=== PATIENT | female | born 1960 | race Caucasian/White ===

== ENCOUNTER 2019-10-25 15:03 | Emergency (ER) | payer MEDICARE, MEDICAID, SELFPAY ==
[2019-10-25 16:12] VITALS: BP 122/74; PULSE 71; RESP 20; TEMP 36.4; O2SAT 95; BMI 23.6
--- NOTE | 2019-10-25 16:32 | W.ED.FALL ---
HPI - Fall General: Chief Complaint: Fall Stated Complaint: Fall-thoracic pain Time Seen by Provider: 10/25/19 16:32 PFSH ED PFSH: Statuses (acute, chronic, etc) shown below reflect problem list status as previously entered and may not be historically accurate Social History Smoking and tobacco status: current every day smoker Course Vital Signs: Vital signs: Vital Signs Temperature 97.6 F 10/25/19 16:12 Pulse Rate 71 10/25/19 16:12 Respiratory Rate 20 H 10/25/19 16:12 Blood Pressure 122/74 10/25/19 16:12 Pulse Oximetry 95 10/25/19 16:12 Discharge Plan Discharge Prescriptions: No Action trazodone 100 mg tablet 300 mg PO .QHS Qty: 90 RF: 4 Coding Level of Care Code ED Family Literacy Coordinator for Isaac Villegas
[2019-10-25 16:39] VITALS: BP 105/62; PULSE 75; RESP 16; TEMP 36.4; O2SAT 95
--- NOTE | 2019-10-25 17:12 | XR_ITS ---
WS: [id number] Chest with left rib detail, 10/25/2019 Clinical Data: injury Comparison: Portable chest, 04/19/2019. Findings: The lungs show no nodules, masses, or effusions. The heart is normal. No pneumonia or pneumothorax is seen. The ribs are intact. No rib fractures seen. No subcutaneous emphysema is present. XR/XR ribs LT mn 3V w CXR1V [id number] Impression: Negative chest with left rib detail.
--- NOTE | 2019-10-25 17:13 | W.ED.FALL ---
HPI - Fall General: Chief Complaint: Fall Stated Complaint: Fall-thoracic pain Time Seen by Provider: 10/25/19 16:32 Source: patient Mode of arrival: ambulatory Limitations: no limitations History of Present Illness: HPI Narrative: Patient reports tripping and falling hitting her left anterior chest wall against a bedpost 5 days ago. Patient reports persistent pain to the anterior left chest wall. Patient reports increased pain with deep breaths. Patient appears well. Patient appears in moderate pain. MD complaint: fall Review of Systems General: Reports: 10 or more systems reviewed and unremarkable except in HPI and below Musc: Reports: other (left chest wall pain) PFS ED PFSH: Statuses (acute, chronic, etc) shown below reflect problem list status as previously entered and may not be historically accurate Social History Smoking and tobacco status: current every day smoker Physical Exam Const: COMMON NORMALS: no apparent distress and oriented x3 GENERAL APPEARANCE: cooperative HENMT: COMMON NORMALS: normocephalic, external ears normal, EAC's normal, TM's normal bilaterally and external nose normal HEAD & SCALP: normal to inspection and normocephalic FACE & SINUS: normal facial exam NOSE: external nose normal GENERAL EAR: hearing not grossly impaired EXTERNAL EAR: Yes external ears normal EXTERNAL AUDITORY CANAL: EAC's normal TYMPANIC MEMBRANE: TM's normal bilaterally MOUTH: oral and palatal mucosa normal THROAT: posterior oropharynx normal Eye: COMMON NORMALS: PERRL and EOMs intact bilaterally PUPIL: Yes PERRL Neck/C-Spine: COMMON NORMALS: full ROM and no lymphadenopathy Lymph: LYMPHATIC: no lymphedema noted Chest: CHEST: Yes symmetrical chest wall rise and Yes tenderness (anterior upper left chest wall) Resp: COMMON NORMALS: normal respiratory effort and clear to auscultation bilaterally AUSCULTATION: clear to auscultation bilaterally Cardio: COMMON NORMALS: regular rate and regular rhythm RATE: regular rate RHYTHM: regular rhythm GI: COMMON NORMALS: normal to inspection, nondistended, normoactive bowel sounds and non-tender : COMMON NORMALS: Yes no CVA tenderness BLADDER/KIDNEY EXAM: Yes no CVA tenderness Back/Pelvis: COMMON NORMALS: no CVA tenderness and thoracic and lumbar spine normal to inspection Extremity: COMMON NORMALS: normal to inspection GENERAL: No edema Neuro: COMMON NORMALS: oriented x3, moves all extremities and no focal motor deficits Psych: COMMON NORMALS: mental status grossly normal and cooperative Skin: COMMON NORMALS: no rashes or lesions noted GENERAL SKIN EXAM: no rashes or lesions noted Course Vital Signs: Vital signs: Vital Signs Temperature 97.5 F L 10/25/19 16:39 Pulse Rate 75 10/25/19 16:39 Respiratory Rate 16 10/25/19 16:39 Blood Pressure 105/62 10/25/19 16:39 Pulse Oximetry 95 10/25/19 16:39 MDM - Fall MDM Narrative: Medical decision making narrative: Patient comes in today with left anterior rib discomfort. Patient injured herself 5 days ago. On exam we note no obvious deformity or injury to the area of pain. Respirations are even lungs are clear to auscultation. Differential diagnosis includes rib fracture, costochondritis, contusion. X-rays were negative for any fracture. Reviewed exam with patient recommended treatment for anti-inflammatory and analgesic for pain. Patient reports understanding agreed to plan. Discharge Plan Discharge Patient Disposition: Home, Self-Care Clinical Impression: Rib pain on left side Contusion Qualifiers: Encounter type: initial encounter Contusion area: thoracic wall Contusion of thoracic wall detail: front wall of thorax Laterality: left Qualified Code(s): S20.212A - Contusion of left front wall of thorax, initial encounter Condition: Stable Prescriptions: New naproxen 500 mg tablet 500 mg PO BID Qty: 20 RF: 0 hydrocodone-acetaminophen 5-325 mg tablet 1 tab PO Q8H PRN (Reason: pain) Qty: 7 RF: 0 No Action trazodone 100 mg tablet 300 mg PO .QHS Qty: 90 RF: 4 Discharge Orders: Discharge Order (Routine); Ordered 10/25/19 Ordered By: Calvin Echols Discharge Diet: Usual diet Discharge Activity: Resume usual activity Patient Instructions: Costochondritis (ED) Activity Restrictions/Additional Instructions: Ice or heat for further pain relief Drink plenty of water Activity as tolerated Gentle stretching and range of motion You may use acetaminophen for further pain relief Follow-up with primary care as needed Coding Level of Care Code ED Rare/Endangered Species Specialist for Isaac Vlilegas Exam Problem Focused
[2019-10-25] MEDS: HYDROcodone-acetaminophen 7.5-325 mg Tablet 1 TAB PO (17:25)
[2019-10-25 18:25] VITALS: BP 105/62; PULSE 76; RESP 14; TEMP 36.9
== END 2019-10-25 18:26 | disposition home or self-care (01) ==
PROVIDERS: Emergency Provider Nurse Practitioner Family
DX: S20.212A Contusion of left front wall of thorax, initial encounter (principal); W01.190A Fall on same level from slipping, tripping and stumbling with subsequent striking against furniture, initial encounter; F17.210 Nicotine dependence, cigarettes, uncomplicated
CPT/HCPCS: 71101; 99281; 99283

== ENCOUNTER 2020-01-04 11:37 | Emergency (ER) | payer MEDICARE, MEDICAID, SELFPAY ==
[2020-01-04 11:38] VITALS: BP 119/72; PULSE 74; RESP 18; TEMP 36.8; O2SAT 96; BMI 23.6
--- NOTE | 2020-01-04 11:44 | ED_ITS ---
HPI - Abdominal Pain General: Chief Complaint: Abdominal Pain Stated Complaint: ABD PAIN Time Seen by Provider: 01/04/20 11:44 History of Present Illness: HPI narrative: 51-year-old female comes in complaining of periumbilical pain that she has had for about the last 4 days. EMS states that she had referred to left upper quadrant pain and seemed to migrate in route. Patient has been nauseous with it but not really had any vomiting she has had some loose stools and been more frequent but not any frankly diarrhea stools no hematochezia melena hematemesis or coffee-ground emesis. She has taken some Tums or Rolaids for it has not really helped very much. She is not previously had symptoms like this. She has no dysuria urgency or frequency. MD elicited complaint: abdominal pain Onset (ago): day(s) (4) Pain Consistency: intermittent Location: Periumbilical Severity: moderate Quality: cramping Radiation: LUQ and epigastric Migration to: periumbilical Exacerbating factors: movement Relieving factors: rest Associated Symptoms: Reports bloating, change in bowel habits, loose stools and nausea; Denies chills, coffee ground emesis, diarrhea, fever(s), hematochezia, hematuria, hematemesis, fecal incontinence, melena, poor appetite and vomiting Treatments prior to arrival: NSAIDs and antacids Review of Systems Const: Denies: fever, chills, body aches, change in appetite, fatigue or malaise ENMT: Denies: throat pain, ear pain, nasal discharge or nasal congestion Card: Denies: chest pain, edema, shortness of breath on exertion or shortness of breath when lying down Resp: Denies: shortness of breath, productive cough or non-productive cough GI: Reports: nausea, bloating and change in bowel habits; Denies: vomiting, vomiting blood, coffee grounds in vomit, diarrhea, fecal incontinence, blood in stool or black tarry stool : Denies: blood in urine Skin/Breast: Denies: rash or itching PFSH ED PFSH: Surgical History (Updated 01/04/20 @ 11:47 by Aleksandr Forbes DO) H/O tubal ligation Social History Smoking and tobacco status: current every day smoker Physical Exam Const: COMMON NORMALS: no apparent distress GENERAL APPEARANCE: cooperative and comfortable ORIENTATION/CONSCIOUSNESS: Yes awake, Yes oriented to person, Yes oriented to place and Yes oriented to time HENMT: COMMON NORMALS: normocephalic, head/scalp atraumatic, hearing grossly normal bilaterally, external ears normal, EAC's normal, TM's normal bilaterally, nasal mucous membranes and turbinates normal, moist oral mucous membranes and oropharynx normal HEAD & SCALP: normocephalic and atraumatic NOSE: nasal mucous membranes and turbinates normal EXTERNAL EAR: Yes external ears normal EXTERNAL AUDITORY CANAL: EAC's normal TYMPANIC MEMBRANE: TM's normal bilaterally Eye: COMMON NORMALS: PERRL, EOMs intact bilaterally, conjunctivae normal and no scleral icterus CONJUNCTIVA: Yes conjunctivae normal PUPIL: Yes PERRL Neck/C-Spine: COMMON NORMALS: full ROM, no lymphadenopathy, supple and no JVD Lymph: LYMPHATIC: no lymphadenopathy noted and no lymphedema noted Resp: COMMON NORMALS: normal respiratory effort, no retractions, no use of accessory muscles and clear to auscultation bilaterally AUSCULTATION: clear to auscultation bilaterally Cardio: COMMON NORMALS: no JVD, regular rate, regular rhythm and no murmurs RATE: regular rate RHYTHM: regular rhythm GI: COMMON NORMALS: soft to palpation and no hepatosplenomegaly AUSCULTATION: Yes normoactive bowel sounds PALPATION: Yes soft, Yes tender (Periumbilical), No guarding and Yes no hepatosplenomegaly Extremity: COMMON NORMALS: normal to inspection, normal capillary refill, no clubbing, cyanosis or edema, no calf tenderness and no pedal edema Neuro: SENSORIUM/ORIENTATION: Yes oriented to person, Yes oriented to place and Yes oriented to time Skin: COMMON NORMALS: no rashes or lesions noted GENERAL SKIN EXAM: no rashes or lesions noted Course Vital Signs: Vital signs: Vital Signs Temperature 98.3 F 01/04/20 11:38 Pulse Rate 67 01/04/20 14:01 Respiratory Rate 20 H 01/04/20 14:01 Blood Pressure 109/68 01/04/20 14:01 Pulse Oximetry 97 01/04/20 14:01 MDM - Abdominal Pain MDM Narrative: Medical decision making narrative: Reviewed findings with patient.. She has a colitis on CT will start on Cipro and Flagyl give her Zofran to use PRN return to her primary care doctor in the next 3 to 5 days for follow-up. If she has worsening or change symptoms began to have large amounts of bloody stool return to the emergency room Lab Data: Labs: Lab Results 01/04/20 01/04/20 01/04/20 Range/Units 12:00 12:00 12:26 WBC 9.8 (4.0-10.0) 10^3/ uL RBC 4.70 (4.1-5.3) 10^6/u L Hgb 13.6 (11.5-15.3) g/dL Hct 43.4 (37.0-47.0) % MCV 92.3 (81-99) fL MCH 28.9 (28.0-34.0) pg MCHC 31.3 (30.0-36.0) g/dL RDW 13.5 (12.1-15.1) % Plt Count 486 H (130-400) 10^3/c mm MPV 10.1 (7.4-10.4) fL Neut % (Auto) 42.0 % Lymph % (Auto) 45.7 % Wilcox % (Auto) 11.0 % Eos % (Auto) 0.4 % Baso % (Auto) 0.6 % Neut # (Auto) 4.1 (1.8-7.7) 10^3/u L Lymph # (Auto) 4.5 (0.8-4.8) 10^3/u L Wilcox # (Auto) 1.1 H (0.2-0.9) 10^3/u L Eos # (Auto) 0.0 (0.0-0.8) 10^3/u L Baso # (Auto) 0.1 (0.0-0.1) 10^3/u L Nucleated RBC % (a uto) 0 % Nucleated RBCs # 0.0 /100WBC Sodium 139 (136-145) mmol/L Potassium 4.1 (3.5-5.1) mmol/L Chloride 99 (98-107) mmol/L Carbon Dioxide 28 (22-29) mmol/L Anion Gap 16.1 (5-19) BUN 8 (6-20) mg/dL Creatinine 0.7 (0.5-0.9) mg/dL GFR Calculation 85.9 L (90-130) mL/min Glucose 122 H (65-115) mg/dL Calculated Osmolal ity 285 (285-295) mOsm/k g Calcium 9.3 (8.5-10.5) mg/dL Total Bilirubin 0.3 (0.15-1.2) mg/dL AST 38 H (0-32) U/L ALT 39 H (0-33) U/L Alkaline Phosphata se 176 H (35-105) IU/L Total Protein 7.8 (6.6-8.7) g/dL Albumin 4.3 (3.5-5.2) g/dL Globulin 3.5 (1.3-4.6) g/dL Lipase 48 (13-60) U/L Urine Color Yellow (Yellow) Urine Appearance Clear (CLEAR) Urine pH 5 (5-7) Ur Specific Gravit y 1.010 (1.005-1.030) Urine Protein Neg (Negative) Urine Glucose (UA) Norm (Normal) Urine Ketones Negative (Negative) Urine Blood Neg (Negative) Urine Nitrate Negative (Negative) Urine Bilirubin Neg (NEGATIVE) Urine Urobilinogen Norm (Negative) mg/dL Ur Leukocyte Kirsten ase Negative (Negative) Discharge Plan Discharge Patient Disposition: Home, Self-Care Clinical Impression: Colitis Condition: Stable Prescriptions: New ciprofloxacin HCl 500 mg tablet 500 mg PO BID 7 Days Qty: 14 RF: 0 Flagyl 500 mg tablet 500 mg PO BID 7 Days Qty: 14 RF: 0 Zofran 4 mg tablet 4 mg PO Q6H PRN (Reason: nausea and vomiting) Qty: 20 RF: 0 No Action trazodone 100 mg tablet 300 mg PO .QHS Qty: 90 RF: 4 naproxen 500 mg tablet 500 mg PO BID PRN (Reason: Pain) RF: 0 Discharge Orders: Discharge Order (Routine); Ordered 01/04/20 Ordered By: Aleksandr Forbes Discharge Diet: Usual diet Discharge Activity: Resume usual activity Activity Restrictions/Additional Instructions: Clear liquid diet for 24 to 48 hours then advance as tolerated. If symptoms worsen or change or you have bloody stools return to the emergency room. Discharge Date/Time: 01/04/20 14:15 Coding Level of Care Code ED Oven Drier Tender for Isaac Fwd Exam Comprehensive
--- NOTE | 2020-01-04 11:49 | XR_ITS ---
WS: [id number] CHEST XRAY TECHNIQUE: Portable chest. CLINICAL INFORMATION: dyspnea COMPARISON: October 25, 2019 FINDINGS: Heart: Normal cardiac silhouette. Lungs: Mild chronic emphysematous changes. No acute pulmonary infiltrates. No focal pneumonia. Bones: Normal visualized bony structures. XR/XR chest 1V portable [id number] IMPRESSION: No acute chest findings
--- NOTE | 2020-01-04 11:49 | CT_ITS ---
WS: [id number] CT ABDOMEN PELVIS TECHNIQUE: Contrast-enhanced CT of the abdomen and pelvis with coronal and sagittal reformatted image s. CLINICAL INFORMATION: abd pain COMPARISON: None. DLP: 513.[address] scans at [facility] use at least one of these dose optimization techniques: automat ed exposure control; mA and/or kV adjustment per patient size (includes targeted exams where dose is matched to clinical indication); or iterative reconstruction. FINDINGS: Liver is normal in appearance. Normal portal vein and splenic vein. Normal gallbladder. Normal spleen . Adrenal glands are normal. Normal renal parenchymal enhancement. Fluid-filled slightly distended lo ops of small bowel involving the left upper quadrant mid abdomen suspicious for small bowel enteritis . Additional mild colitis involving the right colon and transverse colon with slight induration and s ubmucosal enhancement. Reactive lymph nodes along the mesenteric root. Normal sigmoid colon. Sigmoid diverticulosis. No evidence of acute diverticulitis. Lung bases are well aerated. Normal caliber abdominal aorta. Incidental fat-containing umbilical messi ia. Notified Aleksandr Forbes DO at 01/04/2020 1:[address]/CT abdomen pelvis w con* [id number] IMPRESSION: 1. Fluid-filled small bowel loops with submucosal enhancement suspicious for s mall bowel enteritis. 2. Additional small amount of submucosal enhancement with slight induration ab out the right colon and transverse colon suspicious for mild colitis. 3. Reactive lymph nodes along the mesenteric root. 4. Sigmoid colon is normal in appearance. 5. No free fluid in the pelvis. 6. No hydronephrosis.
[2020-01-04 12:04] VITALS: RESP 16; O2SAT 96
[2020-01-04] MEDS: morphine 4 mg/mL SDV 1 mL IVP (12:04)
[2020-01-04] MEDS: ondansetron 2 mg/ML SDV 2 mL 4 MG IVP (12:05)
[2020-01-04] MEDS: sodium chlor 0.9% + KCl 20 mEq 20 MEQ/1,000 ML BAG 125 MEQ IV (12:08)
[2020-01-04 12:12] LABS: Basophils # 0.1 10^3/uL (0.0-0.1); Basophils % 0.6 %; Eosinophils % 0.4 %; Hematocrit 43.4 % (37.0-47.0); Hemoglobin 13.6 g/dL (11.5-15.3); Lymphocytes # 4.5 10^3/uL (0.8-4.8); Lymphocytes % 45.7 %; Mean Corpuscular HGB Conc 31.3 g/dL (30.0-36.0); Mean Corpuscular Hemoglobin 28.9 pg (28.0-34.0); Mean Corpuscular Volume 92.3 fL (81-99); Mean Platelet Volume 10.1 fL (7.4-10.4); Monocytes # 1.1 10^3/uL (0.2-0.9); Neutrophils # 4.1 10^3/uL (1.8-7.7); Nucleated Red Blood Cells % 0 %; Platelet Count 486 10^3/cmm (130-400); Red Cell Distribution Width 13.5 % (12.1-15.1); White Blood Count 9.8 10^3/uL (4.0-10.0)
[2020-01-04 12:14] VITALS: PULSE 66; RESP 14; O2SAT 96
--- NOTE | 2020-01-04 12:14 | PC.NURSE ---
Pt to CT
[2020-01-04 12:25] LABS: Alanine Aminotransferase 39 U/L (0-33); Albumin Level 4.3 g/dL (3.5-5.2); Alkaline Phosphatase 176 IU/L (35-105); Anion Gap 16.1 (5-19); Aspartate Amino Transferase 38 U/L (0-32); Blood Urea Nitrogen 8 mg/dL (6-20); Calcium 9.3 mg/dL (8.5-10.5); Carbon Dioxide 28 mmol/L (22-29); Chloride 99 mmol/L (98-107); Creatinine Clr Calc Pharmacy 80.0145; Globulin 3.5 g/dL (1.3-4.6); Glomerular Filtration Rate 85.9 mL/min (90-130); Glucose 122 mg/dL (65-115); Lipase 48 U/L (13-60); Osmolality Calculated 285 mOsm/kg (285-295); Potassium 4.1 mmol/L (3.5-5.1); Sodium 139 mmol/L (136-145); Total Bilirubin 0.3 mg/dL (0.15-1.2); Total Protein 7.8 g/dL (6.6-8.7)
[2020-01-04] MEDS: iohexol 300 mg/mL 100 mL Btl IV (12:25)
[2020-01-04 12:57] LABS: Add Urine Microscopic? NO
[2020-01-04 13:01] LABS: Bilirubin Urine Neg (NEGATIVE); Blood Urine Neg (Negative); Glucose Urine UA Norm (Normal); Ketones Urine Negative (Negative); Leukocyte Esterase Urine Negative (Negative); Nitrate Urine Negative (Negative); Protein Urine Neg (Negative); Urine Appearance Clear (CLEAR); Urine Color Yellow (Yellow); Urobilinogen Urine Norm (Negative); pH Urine 5 (5-7)
[2020-01-04 13:34] VITALS: RESP 16; O2SAT 100
[2020-01-04] MEDS: morphine 4 mg/mL SDV 1 mL 2 MG IVP (13:34)
[2020-01-04 14:01] VITALS: BP 109/68; PULSE 67; RESP 20; O2SAT 97
== END 2020-01-04 14:15 | disposition home or self-care (01) ==
PROVIDERS: Emergency Provider Family Medicine
DX: K52.9 Noninfective gastroenteritis and colitis, unspecified (principal); F17.200 Nicotine dependence, unspecified, uncomplicated
CPT/HCPCS: 12345; 71045; 74177; 80053; 81003; 83690; 85025; 96360; 96361; 96365; 96366; 96375; 96376; 99283; 99284; A9270; J2270; J2405; Q9967

== ENCOUNTER → 2020-02-21 07:27 | Outpatient (BNVA) | payer MEDICARE, MEDICAID, SELFPAY | PROVIDERS: Visit Provider Nurse Practitioner Psychiatric/Mental Health | DX: F33.1 Major depressive disorder, recurrent, moderate (principal); F41.1 Generalized anxiety disorder; F43.12 Post-traumatic stress disorder, chronic; F17.210 Nicotine dependence, cigarettes, uncomplicated; F20.89 Other schizophrenia | CPT/HCPCS: 99214 ==

== ENCOUNTER → 2020-04-09 07:40 | Outpatient (BNVA) | payer MEDICARE, MEDICAID, SELFPAY | PROVIDERS: Visit Provider Nurse Practitioner Psychiatric/Mental Health | DX: F33.1 Major depressive disorder, recurrent, moderate (principal); F41.1 Generalized anxiety disorder; F43.12 Post-traumatic stress disorder, chronic; F17.210 Nicotine dependence, cigarettes, uncomplicated | CPT/HCPCS: 99214 ==

== ENCOUNTER → 2020-05-28 07:35 | Outpatient (BNVA) | payer MEDICARE, MEDICAID, SELFPAY | PROVIDERS: Visit Provider Nurse Practitioner Psychiatric/Mental Health | DX: F33.1 Major depressive disorder, recurrent, moderate (principal); F41.1 Generalized anxiety disorder; F43.12 Post-traumatic stress disorder, chronic; F17.210 Nicotine dependence, cigarettes, uncomplicated | CPT/HCPCS: 99213 ==

== ENCOUNTER → 2021-01-09 07:36 | Outpatient (BNVA) | payer MEDICARE, MEDICAID, SELFPAY | PROVIDERS: Visit Provider Nurse Practitioner Psychiatric/Mental Health | DX: F33.1 Major depressive disorder, recurrent, moderate (principal); F41.1 Generalized anxiety disorder; F43.12 Post-traumatic stress disorder, chronic; F17.210 Nicotine dependence, cigarettes, uncomplicated | CPT/HCPCS: 99214 ==

== ENCOUNTER 2021-05-18 08:38 | Outpatient (CLI) | payer MEDICARE, MEDICAID, SELFPAY ==
--- NOTE | 2021-05-18 08:45 | MM_ITS ---
WS: [id number] BILATERAL SCREENING DIGITAL MAMMOGRAM WITH CAD HISTORY: SCREENING COMPARISON: 10/23/2014 and 10/11/2014 Bilateral CC and MLO views submitted. Computer aided detection analyzed. Breast composition: There are scattered areas of fibroglandular density. No suspicious masses, microc alcifications or architectural distortion. Calcifications and prior biopsy clip are stable. Biopsy cl ip in the superior LEFT breast. MM/[place] [id number] IMPRESSION: BI-RADS: 2-Benign FOLLOW UP: 1 Year Follow-up
--- NOTE | 2021-05-18 09:57 | CT_ITS ---
WS: [id number] LDCT LUNG CANCER SCREENING TECHNIQUE: Noncontrast CT of the chest with coronal and sagittal reformatted images. CLINICAL INFORMATION: NICOTINE DEPENDENCE, CIGARETTES COMPARISON: None. DLP: 53.4 mGy.cm DIvol: 1.[address] scans at [facility] use at least one of these dose optimization techniques: automat ed exposure control; mA and/or kV adjustment per patient size (includes targeted exams where dose is matched to clinical indication); or iterative reconstruction. FINDINGS: No acute pulmonary infiltrates. No focal pneumonia or pleural fluid. No suspicious pulmonary parenchy mal opacities. Calcified granuloma right upper lobe. Aortic calcification. Coronary calcification. No mediastinal or hilar lymphadenopathy. Normal GE junction. Adrenal glands are normal. No mediastinal or hilar lymphadenopathy. No axillary lymphadenopathy. CT/CT lung screening [id number] IMPRESSION: LUNG-RADS: 1-Negative FOLLOW UP: 12 Month: Continue annual screening with LDCT
== END 2021-05-18 08:39 | disposition home or self-care (01) ==
LOC: RADSHAW 08:44
PROVIDERS: PCP Family Medicine; Visit Provider Family Medicine
DX: Z12.31 Encounter for screening mammogram for malignant neoplasm of breast (principal); F17.210 Nicotine dependence, cigarettes, uncomplicated
CPT/HCPCS: 71271; 77067

== ENCOUNTER → 2021-09-22 07:21 | Outpatient (BNVA) | payer MEDICARE, MEDICAID, SELFPAY | PROVIDERS: PCP Family Medicine; Visit Provider Nurse Practitioner Psychiatric/Mental Health | DX: F33.1 Major depressive disorder, recurrent, moderate (principal); F41.1 Generalized anxiety disorder; F43.12 Post-traumatic stress disorder, chronic; F17.210 Nicotine dependence, cigarettes, uncomplicated | CPT/HCPCS: 99214 ==

== ENCOUNTER → 2021-11-11 14:55 | Outpatient (BNVA) | payer MEDICARE, MEDICAID, SELFPAY | PROVIDERS: PCP Family Medicine; Visit Provider Nurse Practitioner | DX: N39.0 Urinary tract infection, site not specified (principal); B34.9 Viral infection, unspecified | CPT/HCPCS: 81000 ==

== ENCOUNTER 2021-11-30 11:34 | Outpatient (CLI) | payer MEDICARE, MEDICAID, SELFPAY ==
[2021-11-30 12:01] VITALS: BMI 23.6
--- NOTE | 2021-11-30 12:02 | ECG_ITS ---
[facility] Test Date: 2021-11-30 Pat Name: Cait Agustin Department: Room: Gender: Female Underwear Finisher: Lacy Ybarra : 1960 Requested By: Rebecca Hare Order Number: [id number] Lisa MD: Rebecca Hare M.D. Interpretive Statements NAME OF STUDY: TREADMILL STRESS ECHOCARDIOGRAM INDICATION: Chest Pain Baseline blood pressure of 121/65 mm Hg, heart rate 80 beats per minute and oxygen saturation of 92%. EKG showed normal sinus rhythm, normal axis with isolated PVC with normal ST-Ts. The patient exercised for 6 minutes 24 seconds on a standard Hilton protocol. Patient attained a maximum heart rate of 138 beats per minute(86% of the maximum predicted heart rate) with a blood pressure at the peak exercise of 153/65 mm Hg. The EKG at the peak exercise revealed sinus tachycardia with no significant ST-T wave changes. Patient did not have any chest pain or shortness of breath with the exercise. Frequent isolated PVCs noted with exercise. The study was terminated due to maximal fatigue. During the recovery phase, there were no new changes. Blood pressure at the end of the recovery phase was 115/53 mm Hg with a heart rate of 74 beats per minute and oxygen saturation 94%. CONCLUSION: 1. Normal EKG response to treadmill exercise. 2. No exercise-induced chest pain or cardiac arrhythmia. 3. Good exercise tolerance, attained a maximum of 10.2 METs. Maximum VO2 35.7 mL/kg/min. 4. Baseline normal blood pressure with normal response to exercise. 5. Echocardiographic portion of the study will be reported separately. Electronically Signed On 12-01-2021 11:20:23 LINING STUFFER by Rebecca Hare M.D. [id number]
--- NOTE | 2021-11-30 12:03 | USCV_ITS ---
Stress Echo MelvaiteCait Age: 61 Gender: F : 1960 Exam Date: 11/30/2021 12:44 Ordering Phys: Rebecca Hare MD ([email or web address]) Technologist: [place] [facility] [place]: chest pain Rhythm: Sinus Patient History: Chest pain Cardiac Medications: Medications in past 24 hours: Contrast: Stress Results Protocol: Hilton Total dose(mL): Exercise Duration (min:sec): 6:20 METS: 10.2 Resting HR: 66 Resting BP: 121 / 65 Peak HR: 138 Peak BP: 153 / 65 Max Predicted HR: 160 86 % Max Predicted HR Target HR: 136 Double Product: [id number] Stress Summary: The patient's target heart rate was achieved BP Response: Normal Reason for Termination: Maximal effort/unable to continue Cardiac Symptoms: None ECG Analysis Resting ECG: Stress ECG: Arrhythmia: MEASUREMENTS (Male/Female) Normal Values FINDINGS PROCEDURE: At the baseline, the patient's blood pressure was 121/65 mmHg with a heart rate of 66 bpm. The patient exercised for 6 minutes 20 seconds on a standard Hilton protocol. Patient attained a maximum heart rate of 138 beats per minute(86% of the maximum predicted heart rate) with a blood pressure at the peak exercise of 153/65 mm Hg. During the recovery phase, there were no new changes. Echocardiographic pictures were taken at the baseline, immediately following the peak exercise and during the recovery phase. Baseline echocardiogram: Normal left ventricular size and mildly decreased systolic function with ejection fraction estimated at 50-55%. There seems to be mild hypokinesis of anteroseptal lester . Normal right ventricle size and systolic function. Normal left and right atrial size. No pericardial effusion. No intracardiac masses. Peak exercise echocardiogram: Normal augmentation of left ventricular systolic function with exercise. There is improvement in wall thickness of anteroseptal wall. No new regional wall motion abnormalities. Recovery echocardiogram: Left ventricular systolic function remains augmented. No regional wall motion abnormalities. CONCLUSIONS 1. This is a treadmill stress echocardiogram. 2. Fair exercise tolerance, attained a maximum of 10.2 METs. Double product of 21,114. 3. Normal blood pressure and heart rate response to exercise. 4. Normal left ventricular size and mildly decreased systolic function with ejection fraction estimated at 50-55%. There seems to be mild hypokinesis of anteroseptal lester. Normal echocardiographic response to exercise with no new regional wall motion abnormality. 5. Please see separate report for the EKG portion of the study. Rebecca Hare MD (Electronically Signed) Final Date: 07 December 2021 14:12 S
== END 2021-11-30 11:35 | disposition home or self-care (01) ==
LOC: CDL 11:35
PROVIDERS: PCP Family Medicine; Visit Provider Internal Medicine Cardiovascular Disease
DX: R07.89 Other chest pain (principal); Z20.822 Contact with and (suspected) exposure to COVID-19
CPT/HCPCS: 87635; 93350

== ENCOUNTER → 2022-11-18 08:26 | Outpatient (BNVA) | payer MEDICARE, MEDICAID, SELFPAY | PROVIDERS: PCP Family Medicine; Visit Provider Podiatrist Foot & Ankle Surgery | DX: L60.3 Nail dystrophy (principal) | CPT/HCPCS: 99203 ==

== ENCOUNTER 2023-04-12 17:17 | Outpatient (CLI) | payer MEDICARE, MEDICAID, SELFPAY ==
--- NOTE | 2023-04-12 17:25 | XRR_ITS ---
PROCEDURE INFORMATION: Exam: XR Chest Exam date and time: 04/12/2023 5:27 PM Age: 62 years old Clinical indication: Condition or disease; Lung condition and disease; Other: Acute bronchitis TECHNIQUE: Imaging protocol: Radiologic exam of the chest. Views: 2 views. COMPARISON: 1. CT lung screening [id number] 05/18/2021 10:30 AM 2. CR XR chest 1V portable [id number] 01/04/2020 12:31 PM FINDINGS: Lungs: Unremarkable. No consolidation. Pleural spaces: Unremarkable. No pleural effusion. No pneumothorax. Heart/Mediastinum: Unremarkable. No cardiomegaly. Vasculature: Aortic arch atherosclerotic calcification. Bones/joints: Unremarkable. XR/XR chest 2V* [id number] IMPRESSION: No acute findings.
== END 2023-04-12 17:18 | disposition home or self-care (01) ==
PROVIDERS: PCP Family Medicine; Visit Provider Family Medicine
DX: J20.9 Acute bronchitis, unspecified (principal)
CPT/HCPCS: 71046

== ENCOUNTER 2024-09-04 10:30 | Outpatient (CLI) | payer MEDICARE, MEDICAID, SELFPAY ==
--- NOTE | 2024-09-04 10:33 | MM_ITS ---
WS: [id number] VIEWS: MLO and CC views both breasts. 3D digital tomosynthesis is also included in this exam. Comparison made with prior exam of 11/04/2011, 10/03/2014, 05/18/2021.. Findings: The breasts are heterogeneously dense, which may obscure small masses. No suspicious mass, tumor calcification or architectural distortion. MM/MM scr BI tomosynthesis [id number] Impression: BI-RADS: 2 - Benign FOLLOW-UP: 1 Year Follow-up This mammogram was also analyzed by the Computer Aided Detection System R2 Imag e Street Supervisor.
== END 2024-09-04 10:31 | disposition home or self-care (01) ==
PROVIDERS: PCP Family Medicine; Visit Provider Family Medicine
DX: Z12.31 Encounter for screening mammogram for malignant neoplasm of breast (principal); R92.333 Mammographic heterogeneous density, bilateral breasts
CPT/HCPCS: 77063; 77067

== ENCOUNTER 2024-09-13 15:16 | Outpatient (CLI) | payer MEDICARE, MEDICAID, SELFPAY ==
--- NOTE | 2024-09-13 15:23 | CT_ITS ---
WS: [id number] LDCT LUNG CANCER SCREENING TECHNIQUE: Noncontrast CT of the chest with coronal and sagittal reformatted images. CLINICAL INFORMATION: NICOTINE DEPENDENCE, CIGARETTES COMPARISON: 2020 DLP: 47.60 mGy.cm DIvol: Mean CTDIvol: 0.90 (mGy) All CT scans at [facility] use at least one of these dose optimization techniques: automat ed exposure control; mA and/or kV adjustment per patient size (includes targeted exams where dose is matched to clinical indication); or iterative reconstruction. FINDINGS: Calcified granuloma RIGHT upper lobe. No new suspicious pulmonary parenchymal abnormalities . Number caliber thoracic aorta. Aortic calcification. Mild coronary calcification. No mediastinal or h ilar lymphadenopathy. No axillary lymphadenopathy. Adrenal glands are normal. Normal GE junction. CT/CT lung screening [id number] IMPRESSION: LUNG-RADS: 1-Negative FOLLOW UP: 12 Month: Continue annual screening with LDCT
== END 2024-09-13 15:17 | disposition home or self-care (01) ==
LOC: RAD 15:17
PROVIDERS: PCP Family Medicine; Visit Provider Family Medicine
DX: Z12.2 Encounter for screening for malignant neoplasm of respiratory organs (principal); F17.210 Nicotine dependence, cigarettes, uncomplicated; J84.10 Pulmonary fibrosis, unspecified; I70.0 Atherosclerosis of aorta
CPT/HCPCS: 71271

== ENCOUNTER 2025-06-19 11:13 | Outpatient (CLI) | payer MEDICARE, MEDICAID, SELFPAY ==
--- NOTE | 2025-06-19 11:19 | XR_ITS ---
WS: [id number] Exam: XR chest 2V* [id number] Date/Time of Exam: 06/19/2025 11:26 AM Reason For Exam: FATIGUE/UNINTENTIONAL WEIGHT LOSS Comparison 04/12/2023. Lungs are fully inflated and clear. Normal cardiomediastinal silhouette and regional bony elements. No pleural effusion. XR/XR chest 2V* [id number] IMPRESSION: 1. No acute cardiopulmonary process.
== END 2025-06-19 11:14 | disposition home or self-care (01) ==
PROVIDERS: PCP Family Medicine; Visit Provider Family Medicine
DX: R63.4 Abnormal weight loss (principal); R53.83 Other fatigue
CPT/HCPCS: 71046

== ENCOUNTER 2025-07-23 20:23 | Emergency (ER) | payer MEDICARE, MEDICAID, SELFPAY ==
[2025-07-23 20:59] VITALS: BP 127/76; PULSE 89; RESP 16; TEMP 36.6; O2SAT 96; BMI 20.2
--- NOTE | 2025-07-23 21:50 | CTR_ITS ---
PROCEDURE INFORMATION: Exam: CT Lumbar Spine Without Contrast Exam date and time: 07/23/2025 10:35 PM Age: 64 years old Clinical indication: Injury or trauma; Fall; Blunt trauma (contusions or hematomas); Additional info: Fall, diffuse midline spinal ttp TECHNIQUE: Imaging protocol: Computed tomography of the lumbar spine without contrast. Radiation optimization: All CT scans at this facility use at least one of these dose optimization techniques: automated exposure control; mA and/or kV adjustment per patient size (includes targeted exams where dose is matched to clinical indication); or iterative reconstruction. COMPARISON: CT abdomen pelvis w con* [id number] 01/04/2020 12:17 PM RADIATION DOSE METRICS: Total DLP (mGy-cm): 451.7 FINDINGS: Bones/joints: No acute fracture. Normal alignment. No significant disc bulge or herniation. No severe spinal canal stenosis. No significant neural foraminal narrowing. Vasculature: Mild atherosclerosis of the aorta and its major branching vessels is noted. Soft tissues: Unremarkable. CT/CT lumbar spine wo con* [id number] IMPRESSION: No acute lumbar spine fracture or subluxation.
--- NOTE | 2025-07-23 21:50 | CTR_ITS ---
PROCEDURE INFORMATION: Exam: CT Thoracic Spine Without Contrast Exam date and time: 07/23/2025 10:35 PM Age: 64 years old Clinical indication: Injury or trauma; Fall; Blunt trauma (contusions or hematomas); Additional info: Fall, diffuse midline spinal ttp TECHNIQUE: Imaging protocol: Computed tomography of the thoracic spine without contrast. Radiation optimization: All CT scans at this facility use at least one of these dose optimization techniques: automated exposure control; mA and/or kV adjustment per patient size (includes targeted exams where dose is matched to clinical indication); or iterative reconstruction. COMPARISON: CT cervical spin wo con* [id number] 07/23/2025 10:32 PM RADIATION DOSE METRICS: Total DLP (mGy-cm): 412.8 FINDINGS: Bones/joints: No acute fracture. Normal alignment. No significant disc bulge or herniation. No severe spinal canal stenosis. No significant neural foraminal narrowing. Soft tissues: Unremarkable. Vasculature: Mild atherosclerotic changes of the thoracic aorta and its major branch vessels is noted. CT/CT thoracic spin wo con* [id number] IMPRESSION: No acute thoracic spine fracture.
--- NOTE | 2025-07-23 21:50 | CTR_ITS ---
PROCEDURE INFORMATION: Exam: CT Cervical Spine Without Contrast Exam date and time: 07/23/2025 10:32 PM Age: 64 years old Clinical indication: Injury or trauma; Fall; Blunt trauma; Additional info: Fall, diffuse midline spinal ttp TECHNIQUE: Imaging protocol: Computed tomography of the cervical spine without contrast. Radiation optimization: All CT scans at this facility use at least one of these dose optimization techniques: automated exposure control; mA and/or kV adjustment per patient size (includes targeted exams where dose is matched to clinical indication); or iterative reconstruction. COMPARISON: CT lung screening [id number] 09/13/2024 3:26 PM RADIATION DOSE METRICS: Total DLP (mGy-cm): 161.59 FINDINGS: Bones: Atlantoaxial osteoarthritis is present. A loss of the normal cervical lordosis is present, likely positional. Intervertebral vacuum phenomena, consistent with chronic degenerative change. Degenerative joint and disc disease is most prominent at C5-C6. C5-C6 posterior disc osteophyte complex. Mild multilevel intervertebral disc height loss is noted. No neural foraminal stenosis. No acute fracture or compression deformity is noted. No subluxations. Lungs: Lung apices are normal. Soft tissues: Unremarkable. CT/CT cervical spin wo con* [id number] IMPRESSION: 1. No acute fracture or compression deformity. 2. No subluxations. 3. Multilevel degenerative changes, most prominent at C5-C6. 4. No neural foraminal stenosis.
--- NOTE | 2025-07-24 04:25 | ED_ITS ---
HPI - Fall General: Chief Complaint: Fall Stated Complaint: fall at 10 box. @1 spine hurting to butt Time Seen by Provider: 07/23/25 20:27 History of Present Illness: Patient is a 64-year-old female with past medical history of COPD not on home oxygen who presents after a slip and fall at a grocery store, where she slipped on a wet floor and describes doing the splits and had awkward positioning of her feet and fell to the ground. She did not hit her head, no LOC, she is not on blood thinners. Initially was able to ambulate without any pain but after period of a few hours started to develop diffuse back and neck pain and came to the ED for evaluation. She has taken no pain medication since accident, she denies any leg weakness, saddle anesthesia, has been able to urinate without issue since. No history of diabetes, no spinal surgeries, no previous IVDU. Denies any chest pain, shortness of breath, severe headache, syncope just prior to episode. Associated symptoms-after fall: Reports neck pain Related Data Home Medications ?Medication ?Instructions ?Recorded ?Confirmed umeclidinium 62.5 mcg-vilanterol 1 inh inhalation Q24H 04/09/25 04/09/25 25 mcg/actuation powdr for inhalation (Anoro Ellipta) Previous Rx's ?Medication ?Instructions ?Recorded albuterol sulfate 90 mcg/actuation 2 puff inhalation Q 6H PRN 01/29/21 aerosol inhaler (Ventolin HFA) shortness of breath or wheezing #6.7 grams miscellaneous medical supply 1 ea miscellaneous Q4H [place] 04/01/23 wheezing #1 ea albuterol sulfate 2.5 mg/3 mL 2.5 mg (3 mL) inhalation Q4H PRN 04/07/23 (0.083 %) solution for nebulization shortness of breat h or wheezing #90 mL trazodone 100 mg tablet 300 mg (3 x 100 mg) PO .QHS #270 02/20/25 tabs trazodone 50 mg tablet 50 mg PO BEDTIME PRN insomni a #90 02/20/25 tabs ciprofloxacin HCl 500 mg tablet 500 mg PO BID 10 days #20 tabs 02/23/25 (Cipro) hydrocodone 5 mg-acetaminophen 325 1 tab PO Q6H PRN pa in 5 days #20 02/23/25 mg tablet tabs metronidazole 500 mg tablet 500 mg PO Q8H 10 days #30 tabs 02/23/25 hydroxyzine HCl 25 mg tablet 25 mg PO BID PRN anxiety #180 tabs 04/09/25 cyclobenzaprine 10 mg tablet 10 mg PO TID PRN muscle s pasm #20 07/24/25 tabs Allergies Allergy/AdvReac Type Severity Reaction Status Date / Time Penicillins Allergy unknown Verified 04/09/25 08:52 Review of Systems General: Reports: 10 or more systems reviewed and unremarkable except in HPI and below Musc: Reports: neck pain and back pain PFSH ED PFSH: Medical History (Updated 07/24/25 @ 00:22 by Ronal Haskins DO) Psychiatric care COPD (chronic obstructive pulmonary disease) Nicotine dependence, cigarettes, uncomplicated Chronic post-traumatic stress disorder Generalized anxiety disorder Major depressive disorder, recurrent episode, moderate with anxious distress Surgical History H/O tubal ligation Social History Smoking and tobacco/nicotine status: never used tobacco/nicotine Physical Exam Narrative: EXAM NARRATIVE: Well-appearing, vital stable on arrival, no acute distress. No obvious external signs of trauma, extremities with full range of motion, no deformities and neurovascularly intact, chest wall and abdomen with no reproducible tenderness, bruising, erythema. Neck supple but has diffuse midline CTL tenderness, no step-offs, no deformities, no erythema or bruising. GCS 15, able to ambulate without ataxia. Course Vital Signs: Vital signs: Vital Signs Temperature 97.9 F 07/23/25 20:59 Pulse Rate 89 07/23/25 20:59 Respiratory Rate 16 07/23/25 20:59 Blood Pressure 127/76 07/23/25 20:59 Pulse Oximetry 96 07/23/25 20:59 Oxygen Delivery Me thod Room Air 07/23/25 20:59 MDM - Fall Medical Decision Making -ddx: Spinal fracture, mechanical fall, MSK strain, bony contusion, considered but less likely, cord compression -Arrives after mild mechanism of action ground-level fall that was seemingly mechanical, denies any chest pain, shortness of breath, headache just prior. Was able to ambulate on her own and has had slowly progressive diffuse back and neck pain develop since the event, no worrisome signs or symptoms for cord compression at this time., With her diffuse point tenderness, will get CT scans of her cervical, thoracic and lumbar spine, give Flexeril and reassess. - Negative CT scans for any occult fracture, concerns for cord compression, did have probable chronic findings of osteoarthritis/spinal stenosis in his cervical spine that was potentially aggravated by today's fall. She felt improved with Flexeril, was able to ambulate without issue, repeat neurovascular exam of her lower extremities was 5 out of 5 and unchanged and with symptom improvement, no acute injuries today, she was stable for discharge with a prescription of muscle relaxants to take as needed and advised to follow-up with PCP in a few days for reevaluation, strict return precautions given. Lab Data Radiology Impressions Cervical Spine CT 07/23/25 21:50 IMPRESSION: 1. No acute fracture or compression deformity. 2. No subluxations. 3. Multilevel degenerative changes, most prominent at C5-C6. 4. No neural foraminal stenosis. Lumbar Spine CT 07/23/25 21:50 IMPRESSION: No acute lumbar spine fracture or subluxation. Thoracic Spine CT 07/23/25 21:50 IMPRESSION: No acute thoracic spine fracture. All radiology interpretation(s) finalized by discharge Discharge Plan Discharge Patient Disposition: Home Clinical Impression: Fall (on) (from) other stairs and steps, initial encounter Low back sprain Qualifiers: Encounter type: initial encounter Qualified Code(s): S33.5XXA - Sprain of ligam ents of lumbar spine, initial encounter Condition: Stable Prescriptions: New cyclobenzaprine 10 mg tablet 10 mg PO TID PRN (Reason: muscle spasm) Qty: 20 0RF No Action albuterol sulfate 2.5 mg/0.5 mL solution for nebulization 2.5 mg inhalation ONCE Qty: 1 0RF albuterol sulfate [Ventolin HFA] 90 mcg/actuation HFA aerosol inhaler 2 puff inhalation Q6H PRN (Reason: shortness of breath or wheezing) Qty: 6.7 0RF umeclidinium-vilanterol [Anoro Ellipta] 62.5-25 mcg/actuation blister with device 1 inh inhalation Q24H hydroxyzine HCl 25 mg tablet 25 mg PO BID PRN (Reason: anxiety) Qty: 180 2RF Rx Instructions: May take one tablet twice per day as needed for anxiety metronidazole 500 mg tablet 500 mg PO Q8H 10 Days Qty: 30 0RF ciprofloxacin HCl [Cipro] 500 mg tablet 500 mg PO BID 10 Days Qty: 20 0RF hydrocodone-acetaminophen 5-325 mg tablet 1 tab PO Q6H PRN (Reason: pain) 5 Days Qty: 20 0RF miscellaneous medical supply Misc 1 ea miscellaneous Q4H PRN (Reason: wheezing) Qty: 1 0RF Rx Instructions: nebulizer machine albuterol sulfate 2.5 mg /3 mL (0.083 %) solution for nebulization 2.5 mg inhalation Q4H PRN (Reason: shortness of breath or wheezing) Qty: 90 0RF trazodone 50 mg tablet 50 mg PO BEDTIME PRN (Reason: insomnia) Qty: 90 2RF Rx Instructions: Take one tablet at bedtime as needed for sleep trazodone 100 mg tablet 300 mg PO .QHS Qty: 270 2RF Rx Instructions: Take three tablets at bedtime Discharge Orders: Discharge ED (Routine); Ordered 07/24/25 Ordered By: Ronal Haskins Referrals: Tai Moore MD [Primary Care Provider, Family Practice] Discharge Diet: Usual diet Discharge Activity: Increase activity as tolerated Patient Instructions: Lower Back Exercises (ED), Opioid Safety, Pain Management, Patient Portal & Anam Instructions Activity Restrictions/Additional Instructions: You were seen after your recent fall, you were evaluated with CT scans which found no evidence of fracture, internal bleeding today. You most likely have a lower back sprain and possibly one of your hamstring muscles after your weird positioning. To help with the pain in the next couple days, alternate ibuprofen 400 mg and Tylenol 650 mg every 4 hours as needed. In addition, use the muscle relaxant, Flexeril, 10 mg every 8 hours as needed. Use heating pads 20 minutes at a time every few hours as well. Avoid strenuous exercise but use the lower back exercises attached to prevent stiffness. Return to the ED with severe worsening of your pain, inability to walk, loss of sensation or strength in your legs, inability to urinate, any other emergent concerns. Print Language: Uzbek Coding Level of Care Code ED Tailing Machine Operator for Isaac Villegas
== END 2025-07-24 00:33 | disposition home or self-care (01) ==
PROVIDERS: Emergency Provider Student in an Organized Health Care Education/Training Program; PCP Family Medicine
DX: S33.5XXA Sprain of ligaments of lumbar spine, initial encounter (principal); W01.0XXA Fall on same level from slipping, tripping and stumbling without subsequent striking against object, initial encounter; J44.9 Chronic obstructive pulmonary disease, unspecified
CPT/HCPCS: 72125; 72128; 72131; 99284; J9999

== ENCOUNTER 2025-08-27 19:08 | Emergency (ER) | payer MEDICARE, MEDICAID, SELFPAY ==
[2025-08-27 19:11] VITALS: BP 129/73; PULSE 94; RESP 20; TEMP 36.7; O2SAT 93; BMI 20.5
--- NOTE | 2025-08-27 20:48 | ECG_ITS ---
[facility] Test Date: 2025-08-27 Pat Name: Cait Agustin Department: Room: Gender: Female Willow Analyst: : 1960 Requested By: Lincoln Ayala Order Number: [id number] Gonzalez MD: Ailyn Bowser M.D. Measurements Intervals [place] Rate: 90 P: 68 [place]: 151 QRS: 57 QRSD: 71 T: 74 QT: 360 QTc: 441 Interpretive Statements SINUS RHYTHM Compared to ECG 04/19/2019 16:18:35 No significant changes Electronically Signed On 08-28-2025 23:40:50 ACCOUNT GENERAL MANAGER by Ailyn Bowser M.D. [email or web address] [id number]
--- NOTE | 2025-08-27 20:49 | XRR_ITS ---
PROCEDURE INFORMATION: Exam: XR Chest Exam date and time: 08/27/2025 8:52 PM Age: 64 years old Clinical indication: Cough TECHNIQUE: Imaging protocol: Radiologic exam of the chest. Views: 1 view. COMPARISON: CR XR chest 2V* [id number] 06/19/2025 11:30 AM FINDINGS: Lungs: Hazy opacification of the left lung base, favored to be overlapping soft tissues. Pleural spaces: No pneumothorax. No pleural effusion. Heart/Mediastinum: Unremarkable. No cardiomegaly. Bones/joints: Unremarkable. XR/XR chest 1V portable [id number] IMPRESSION: Hazy opacification in the left lung base, favored to represent overlapping soft tissues. If there is clinical concern for pneumonia, lateral radiograph could be considered to exclude consolidation in the left lung base.
--- NOTE | 2025-08-27 21:04 | ED_ITS ---
HPI - URI/Sore Throat 2 General: Chief Complaint: Upper Respiratory Infection Stated Complaint: SOB, Congested, Coughing, Hard to catch breath Time Seen by Provider: 08/27/25 20:38 History of Present Illness: 64-year-old female with a history of CONSERVATION COORDINATOR D secondary to smoking not on home oxygen, presenting to the emergency department with approximately 1 week history of cough, nasal congestion, chills, shortness of breath, intermittent chest discomfort with coughing, intermittent facial discomfort and neck pain with coughing, also reports associated sore throat, no fevers at home although has not checked her temperature, denies palpitations, denies abdominal pain vomiting or diarrhea, no leg swelling or calf tenderness, no recent travel or immobilization, has attempted Robitussin at home without improvement of symptoms. Related Data Home Medications ?Medication ?Instructions ?Recorded ?Confirmed umeclidinium 62.5 mcg-vilanterol 1 inh inhalation Q24H 04/09/25 08/06/25 25 mcg/actuation powdr for inhalation (Anoro Ellipta) celecoxib 100 mg capsule (Celebrex) 100 mg PO BID 07/2708/06/25 prednisone 20 mg tablet 20 mg PO BID 08/06/25 tizanidine 4 mg capsule 4 mg PO BID PRN 08/06/2508/20 Previous Rx's ?Medication ?Instructions ?Recorded albuterol sulfate 90 mcg/actuation 2 puff inhalation Q 6H PRN 01/29/21 aerosol inhaler (Ventolin HFA) shortness of breath or wheezing #6.7 grams miscellaneous medical supply [address] N 04/01/23 wheezing #1 ea albuterol sulfate 2.5 mg/3 mL 2.5 mg (3 mL) inhalation Q4H PRN 04/07/23 (0.083 %) solution for nebulization shortness of breat h or wheezing #90 mL hydroxyzine HCl 25 mg tablet 25 mg PO BID PRN anxiety #180 tabs 04/09/25 cyclobenzaprine 10 mg tablet 10 mg PO TID PRN muscle s pasm #20 07/24/25 tabs trazodone 100 mg tablet 300 mg (3 x 100 mg) PO .QHS #270 08/06/25 tabs trazodone 50 mg tablet 50 mg PO BEDTIME PRN insomni a #90 08/06/25 tabs azithromycin 250 mg tablet 250 mg PO DAILY 4 days #4 t abs 08/27/25 benzonatate 200 mg capsule 200 mg PO BID PRN cough #10 caps 08/27/25 prednisone 50 mg tablet 50 mg PO DAILY 5 days #5 tab s 08/27/25 Allergies Allergy/AdvReac Type Severity Reaction Status Date / Time Penicillins Allergy unknown Verified 08/27/25 19:21 PFSH ED 2 PFSH: Medical History Psychiatric care COPD (chronic obstructive pulmonary disease) Nicotine dependence, cigarettes, uncomplicated Chronic post-traumatic stress disorder Generalized anxiety disorder Major depressive disorder, recurrent episode, moderate with anxious distress Surgical History H/O tubal ligation Social History Smoking and tobacco/nicotine status: never used tobacco/nicotine Physical Exam 2 Narrative: EXAM NARRATIVE: Gen: A&Ox4, no acute distress, nontoxic appearing HEENT: Normocephalic, atraumatic, no scleral icterus, external ears normal, moist mucous membranes Neck: Supple, full range of motion, no observable masses Lungs: No Respiratory distress, Lungs clear to auscultation bilaterally no rales, rhonchi, wheezing, saturating 92% on room air without increased work of breathing, speaking in full sentences CV: Regular rate and rhythm, no murmur, no pitting edema to lower extremities bilaterally Abdomen: Soft, nondistended, nontender to palpation MSK: No joint swelling, FROM all 4 extremities Skin: No rashes, petechiae, lesions. Normal color per patient. Neuro: Alert and oriented, no slurred speech, sensation and strength grossly intact all 4 extremities Psych: Appropriate for situation. Course 2 Reevaluation(s): Reevaluation #1: Patient reevaluated at this time, symptoms stable, workup without evidence of bacterial pneumonia after two-view x-ray ruled out left basilar opacity that was poorly visualized on single view, given patient's underlying COPD history reasonable to treat with azithromycin prednisone, antitussive, discharged with return precautions Time: 22:20 Vital Signs: Vital signs: Vital Signs Temperature 98.0 F 08/27/25 19:11 Pulse Rate 87 08/27/25 21:36 Respiratory Rate 18 08/27/25 21:29 Blood Pressure 137/72 08/27/25 21:21 Pulse Oximetry 94 08/27/25 21:29 Oxygen Delivery Me thod Room Air 08/27/25 21:29 MDM - URI/Sore Throat Medical Decision Making 64-year-old female with a history of COPD presenting with a 1 week history of respiratory infectious symptoms including cough nasal congestion sore throat shortness of breath, on arrival to the ER patient is borderline hypoxic 92 to 94% on room air without increased work of breathing or abnormal breath sounds, suspect COPD induced although component of bacterial pneumonia is not excluded, no clinical concern for ACS or pulmonary embolism clinically based on chronology of symptoms, plan for infectious workup to rule out bacterial pneumonia, trial of breathing treatment steroids for possible superimposed COPD exacerbation, reassess for disposition but anticipate discharge with trial of oral steroids antitussives and supportive care with return precautions Lab Data Labs with no leukocytosis or anemia, no BARBARA, normal electrolytes, negative viral respiratory panel 08/27/25 21:07 08/27/25 21:07 Radiology Impressions Chest X-Ray 08/27/25 21:42 IMPRESSION: No pulmonary consolidation. Laboratory Results WBC 7.71 10^3/uL (3.29-11.43) 08/27/25 21:07 RBC 3.75 10^6/uL (3.85-5.65) L 08/27/25 21:07 Hgb 12.30 g/dL (11.27-16.99) 08/27/25 21:07 Hct 37.1 % (36-47) 08/27/25 21:07 MCV 98.9 fl (85-98) H 08/27/25 21:07 MCH 32.8 pg (27-33) 08/27/25 21:07 MCHC 33.2 g/dL (30-55) 08/27/25 21:07 RDW 16.0 % (12.1-15.1) H 08/27/25 21:07 Plt Count 372 10^3/cmm (157-399) 08/27/25 21:07 MPV 9.0 fL (7.4-10.4) 08/27/25 21:07 Neut % (Auto) 44.6 % 08/27/25 21:07 Lymph % (Auto) 39.2 % 08/27/25 21:07 Campbell % (Auto) 13.4 % 08/27/25 21:07 Eos % (Auto) 1.8 % 08/27/25 21:07 Baso % (Auto) 0.9 % 08/27/25 21:07 Neut # (Auto) 3.44 10^3/uL (1.8-7.7) 08/27/25 21:07 Lymph # (Auto) 3.0 10^3/uL (0.8-4.8) 08/27/25 21:07 Campbell # (Auto) 1.0 10^3/uL (0.2-0.9) H 08/27/25 21:07 Eos # (Auto) 0.1 10^3/uL (0.0-0.8) 08/27/25 21:07 Baso # (Auto) 0.1 10^3/uL (0.0-0.1) 08/27/25 21:07 Nucleated RBC % (auto) 0 % 08/27/25 21:07 Nucleated RBCs # 0.0 /100WBC 08/27/25 21:07 Sodium 143 mmol/L (136-145) 08/27/25 21:07 Potassium 4.1 mmol/L (3.5-5.1) 08/27/25 21:07 Chloride 104 mmol/L (98-107) 08/27/25 21:07 Carbon Dioxide 30 mmol/L (22-29) H 08/27/25 21:07 Anion Gap 13.1 (5-19) 08/27/25 21:07 BUN 6 mg/dL (8-23) L 08/27/25 21:07 Creatinine 0.7 mg/dL (0.5-0.9) 08/27/25 21:07 GFR Calculation 84.5 mL/min (90-130) L 08/27/25 21:07 Glucose 104 mg/dL (65-115) 08/27/25 21:07 Calculated Osmolality 294 mOsm/kg (285-295) 08/27/25 21:07 Calcium 8.4 mg/dL (8.5-10.5) L 08/27/25 21:07 Magnesium 2.1 mg/dL (1.7-2.3) 08/27/25 21:07 Influenza A (PCR) Negative (Negative) 08/27/25 21:25 Influenza Type B (PCR) Negative (Negative) 08/27/25 21:25 RSV (PCR) Negative (Negative) 08/27/25 21:25 SARS-CoV-2 (PCR) Negative (Negative) 08/27/25 21:25 All radiology interpretation(s) finalized by discharge ED provider radiology interpretation(s): Chest x-ray with no evidence of bacterial consolidation EKG Data EKG 1: I personally reviewed and interpreted this EKG as follows: EKG interpretation date: 08/27/25 EKG interpretation time: 19:45 Interpretation: Sinus rhythm at 90 bpm, no STEMI, no ectopy, QTc 441 ms, normal axis Discharge Plan Discharge Patient Disposition: Home Clinical Impression: Acute exacerbation of chronic obstructive pulmonary disease Upper respiratory infection Qualifiers: URI type: unspecified viral URI Qualified Code(s): J06.9 - Acute upper respiratory infection, unspecified Condition: Stable Prescriptions: New azithromycin 250 mg tablet 250 mg PO DAILY 4 Days Qty: 4 0RF Rx Instructions: start on day 2 of therapy benzonatate 200 mg capsule 200 mg PO BID PRN (Reason: cough) Qty: 10 0RF prednisone 50 mg tablet 50 mg PO DAILY 5 Days Qty: 5 0RF No Action albuterol sulfate 2.5 mg/0.5 mL solution for nebulization 2.5 mg inhalation ONCE Qty: 1 0RF albuterol sulfate [Ventolin HFA] 90 mcg/actuation HFA aerosol inhaler 2 puff inhalation Q6H PRN (Reason: shortness of breath or wheezing) Qty: 6.7 0RF umeclidinium-vilanterol [Anoro Ellipta] 62.5-25 mcg/actuation blister with device 1 inh inhalation Q24H hydroxyzine HCl 25 mg tablet 25 mg PO BID PRN (Reason: anxiety) Qty: 180 2RF Rx Instructions: May take one tablet twice per day as needed for anxiety prednisone 20 mg tablet 20 mg PO BID celecoxib [Celebrex] 100 mg capsule 100 mg PO BID tizanidine 4 mg capsule 4 mg PO BID PRN trazodone 50 mg tablet 50 mg PO BEDTIME PRN (Reason: insomnia) Qty: 90 2RF Rx Instructions: Take one tablet at bedtime as needed for sleep trazodone 100 mg tablet 300 mg PO .QHS Qty: 270 2RF Rx Instructions: Take three tablets at bedtime miscellaneous medical supply Misc 1 ea miscellaneous Q4H PRN (Reason: wheezing) Qty: 1 0RF Rx Instructions: nebulizer machine albuterol sulfate 2.5 mg /3 mL (0.083 %) solution for nebulization 2.5 mg inhalation Q4H PRN (Reason: shortness of breath or wheezing) Qty: 90 0RF cyclobenzaprine 10 mg tablet 10 mg PO TID PRN (Reason: muscle spasm) Qty: 20 0RF Discharge Orders: Discharge ED (Routine); Ordered 08/27/25 Ordered By: Lincoln Ayala Referrals: Tai Moore MD [Primary Care Provider, Family Practice] Patient Instructions: Upper Respiratory Infection (ED), Patient Portal & Anam Instructions Print Language: Sinhala Coding Level of Care Code ED Switchboard Inspector for Isaac Villegas
[2025-08-27 21:11] LABS: Hematocrit 37.1 % (36-47); Hemoglobin 12.30 g/dL (11.27-16.99); Mean Corpuscular HGB Conc 33.2 g/dL (30-55); Mean Corpuscular Hemoglobin 32.8 pg (27-33); Mean Corpuscular Volume 98.9 fl (85-98); Nucleated Red Blood Cells % 0 %; Platelet Count 372 10^3/cmm (157-399); Red Blood Count 3.75 10^6/uL (3.85-5.65); White Blood Count 7.71 10^3/uL (3.29-11.43)
[2025-08-27 21:21] VITALS: BP 137/72; PULSE 89; RESP 18; O2SAT 93
[2025-08-27 21:27] LABS: Anion Gap 13.1 (5-19); Blood Urea Nitrogen 6 mg/dL (8-23); Calcium 8.4 mg/dL (8.5-10.5); Carbon Dioxide 30 mmol/L (22-29); Chloride 104 mmol/L (98-107); Glucose 104 mg/dL (65-115); Magnesium 2.1 mg/dL (1.7-2.3); Osmolality Calculated 294 mOsm/kg (285-295); Potassium 4.1 mmol/L (3.5-5.1); Sodium 143 mmol/L (136-145)
[2025-08-27 21:29] VITALS: PULSE 82; RESP 18; O2SAT 94
[2025-08-27 21:36] VITALS: PULSE 87
--- NOTE | 2025-08-27 21:42 | XRR_ITS ---
PROCEDURE INFORMATION: Exam: XR Chest Exam date and time: 08/27/2025 9:45 PM Age: 64 years old Clinical indication: Cough, rule out basilar pneumonia TECHNIQUE: Imaging protocol: Radiologic exam of the chest. Views: 2 views. COMPARISON: CR (CHEST, ) 08/27/2025 8:52 PM FINDINGS: Lungs: No pulmonary consolidation. Flattening of the hemidiaphragms which can be seen in the setting of emphysema. Pleural spaces: No pneumothorax. No pleural effusion. Heart/Mediastinum: Unremarkable. No cardiomegaly. Bones/joints: Unremarkable. XR/XR chest 2V* [id number] IMPRESSION: No pulmonary consolidation.
[2025-08-27 22:12] LABS: Respiratory Syncytial Virus Ce NEGATIVE (Negative); SARS-CoV-2 PCR NEGATIVE (Negative)
== END 2025-08-27 23:02 | disposition home or self-care (01) ==
PROVIDERS: Emergency Provider Student in an Organized Health Care Education/Training Program; PCP Family Medicine
DX: J44.1 Chronic obstructive pulmonary disease with (acute) exacerbation (principal); J06.9 Acute upper respiratory infection, unspecified; Z11.52 Encounter for screening for COVID-19
CPT/HCPCS: 36415; 71045; 71046; 80048; 83735; 85025; 87637; 93005; 94640; 96360; 99285; J7030; J7512; J9999; Q0144